=== PATIENT | female | born 1980 | race African-American/Black ===

== ENCOUNTER 2019-11-01 15:45 | Inpatient (IN) | payer BC, OTHER ==
[2019-11-01] MEDS ORDERED: BETAMET ACET/BETAMET NA PH 30 MG/5 ML VIAL ONE (17:36)
[2019-11-01] MEDS: BETAMET ACET/BETAMET NA PH 30 MG/5 ML VIAL IM SCH (18:00)
[2019-11-01 19:21] LABS: HEMATOCRIT 34.4 % (32.4-45.2); MCH 27.5 pg (25.7-33.7); MEAN PLT VOLUME 11.2 fl (7.5-11.1); PH,URINE 6.5 (5.0-8.0); PLATELET COUNT 211 K/MM3 (134-434); RDW 14.4 % (11.6-15.6); URINE APPEARANCE CLEAR; URINE BILIRUBIN NEGATIVE (NEGATIVE); URINE COLOR YELLOW; URINE GLUCOSE (UA) NEGATIVE (NEGATIVE); URINE KETONE NEGATIVE (NEGATIVE); URINE LEUK ESTERASE NEGATIVE (NEGATIVE); URINE NITRITE NEGATIVE (NEGATIVE); URINE PROTEIN NEGATIVE (NEGATIVE); URINE UROBILINOGEN 0.2 mg/dL (0.2-1.0); WHITE BLOOD COUNT 13.4 K/mm3 (4.0-10.0)
[2019-11-01 21:07] LABS: ALBUMIN 2.6 g/dl (3.4-5.0); BILIRUBIN,TOTAL 0.1 mg/dL (0.2-1); BLOOD UREA NITROGEN 6.1 mg/dL (7-18); CALCIUM 9.1 mg/dL (8.5-10.1); CREATININE 0.4 mg/dL (0.55-1.3); POTASSIUM 3.7 mmol/L (3.5-5.1); TOT PROT 5.9 g/dl (6.4-8.2)
[2019-11-01 22:10] VITALS: BMI 45.2
--- NOTE | 2019-11-01 22:24 | HP ---
Past Medical History - Admission History Source: Patient Limitations to Obtaining History: No Limitations - Past Medical History ...: 3 ...Para: 1 ...Term: 1 ...: 0 ...Spon : 0 ...Induced : 1 ...Living Children: 1 ...Multiple Gestation: 0 ... Weeks Gestation by Dates: 35.0 ...EDC by Dates: 12/06/19 - Past Surgical History Past Surgical History: Yes: (breast reduction 2010) Hx Myomectomy: No Hx Transabdominal Cerclage: No - Smoking History Smoking history: Never smoked Have you smoked in the past 12 months: No - Alcohol/Substance Use Hx Alcohol Use: No Home Medications - Allergies Allergies/Adverse Reactions: Allergies Allergy/AdvReac Type Severity Reaction Status Date / Time No Known Allergies Allergy Verified 11/01/19 18:19 - Home Medications Home Medications: Ambulatory Orders Levothyroxine [Synthroid -] 50 mcg PO DAILY 11/01/19 Vitamins (Sjr) - 1 tab PO DAILY 11/01/19 Review of Systems - Review of Systems Constitutional: reports: No Symptoms Cardiovascular: reports: No Symptoms Respiratory: reports: No Symptoms Gastrointestinal: reports: No Symptoms Genitourinary: reports: No Symptoms Physical Exam - Maternity Vital Signs: Vital Signs Temperature 98.4 F 11/01/19 21:30 Pulse Rate 89 11/01/19 21:30 Respiratory Rate 18 11/01/19 21:30 Blood Pressure 125/77 11/01/19 21:30 O2 Sat by Pulse Oximetry (%) Constitutional: Yes: Well Nourished Cardiovascular: Yes: WNL Lungs: Clear to auscultation - Abdominal Exam/OB Number of Fetuses: Single Presentation: Vertex Contractions: No Heart Rate (range): 140 Category: I Accelerations: Uniform Decelerations: None - Vaginal Exam/OB Nitrazine Test: Negative - Labs Lab Results: CBC, BMP 11/01/19 18:00 11/01/19 19:40 Hemorrhage Risk Assessment - Risk Factors Medium Risk Factors: Yes: None High Risk Factors: Yes: None Risk Score: 1 Risk Level: Medium Risk Assessment/Plan 39yo @35w0d sent for prolonged monitoring, on levothyroxine 50mcg One elevated BP,THALIA @ [facility] today 5.1 Admit to maternity BP q4 hrs NST q shift Repeat THALIA tomorrow 2dnd dose of betamethasone tomorrow 24 hr urine collection Patient aware.
--- NOTE | 2019-11-02 11:29 | PN ---
Progress Note (short form) - Note Progress Note: 39 y/o at 35w1d undergoing prolonged monitoring due to oligohydramnios. s/p betamethasone x1. Patient feels well; offers no complaints. Denies abdominal pain, vaginal bleeding, LOF. Reports good movements. VSS Abdomen gravid, soft, NT Perineum dry NST reactive No contractions U/S today shows THALIA 5.3 A/P Oligohydramnios IV hydration Second dose betamethasone at 6 PM Monitor vitals NST q shift 24 hour urine pending Reassess
[2019-11-02] MEDS: LACTATED RINGERS SOLUTION 1,000 ML/1,000 ML INFUS.BAG IV SCH ×2 (15:00→22:40)
[2019-11-02] MEDS: LEVOTHYROXINE NA 50 MCG TABLET (FP) PO SCH (15:49)
[2019-11-02] MEDS: BETAMET ACET/BETAMET NA PH 30 MG/5 ML VIAL IM SCH (18:36)
[2019-11-03] MEDS: LACTATED RINGERS SOLUTION 1,000 ML/1,000 ML INFUS.BAG IV SCH (05:36)
[2019-11-03] MEDS: LEVOTHYROXINE NA 50 MCG TABLET (FP) PO SCH (06:24)
[2019-11-03] MEDS ORDERED: LEVOTHYROXINE NA 50 MCG TABLET (FP) PO SCH (07:00)
[2019-11-04] MEDS: LACTATED RINGERS SOLUTION 1,000 ML/1,000 ML INFUS.BAG IV SCH (06:06)
[2019-11-04] MEDS: LEVOTHYROXINE NA 50 MCG TABLET (FP) PO SCH (06:07)
[2019-11-04] MEDS: PRENATAL VITAMINS W/ FOLIC ACID TABLET (FP) PO SCH (09:50)
[2019-11-04] MEDS: DOCUSATE SODIUM 100 MG CAPSULE (FP) PO PRN ×2 (09:50→20:23)
--- NOTE | 2019-11-04 12:24 | PN ---
Progress Note (short form) - Note Progress Note: Patient comfortable in bed No complaints today VSS, afebrile EFM - Baseline 140/min, moderate variability, reactive tracing Tocos - None Pelvic - deferred Plan - Late gestation with hypothyroidism and to exclude oligohydramnios Stable, continue management
[2019-11-05] MEDS: LACTATED RINGERS SOLUTION 1,000 ML/1,000 ML INFUS.BAG IV SCH ×2 (01:15→09:04)
[2019-11-05] MEDS: LEVOTHYROXINE NA 50 MCG TABLET (FP) PO SCH (06:33)
[2019-11-05] MEDS: PRENATAL VITAMINS W/ FOLIC ACID TABLET (FP) PO SCH (09:03)
[2019-11-05 09:36] VITALS: BP 131/87; PULSE 79; TEMP 97.8
--- NOTE | 2019-11-05 10:19 | PN ---
Progress Note (short form) - Note Progress Note: pt. without complaints this am. denies BOJORQUEZ , visual disturbances or epigastric pain. +FM. no leaking, bleeding or contractions. vss - af. BP ok abd: soft, nt, gravid ve: def ext: no calf tenderness b/l a/p iup at 35 2/7 weeks admitted for eval due to transient elev BP and low adair received steroid course. 24 hr urine collection completed: lab result pending for NST today and order rpt BPP, check adair.
--- NOTE | 2019-11-05 16:18 | DS ---
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 Vital Signs: Vital Signs Temperature 97.8 F 11/05/19 09:35 Pulse Rate 79 11/05/19 09:35 Respiratory Rate 18 11/05/19 09:35 Blood Pressure 131/87 11/05/19 09:35 O2 Sat by Pulse Oximetry (%) 100 11/03/19 14:00 Constitutional: Yes: Well Nourished, No Distress Eyes: Yes: WNL HENT: Yes: WNL Neck: Yes: WNL Cardiovascular: Yes: WNL Respiratory: Yes: WNL Gastrointestinal: Yes: WNL Renal/: Yes: WNL Pelvis: Yes: WNL Breast(s): Yes: WNL Musculoskeletal: Yes: WNL Extremities: Yes: WNL Edema: No Integumentary: Yes: WNL Neurological: Yes: WNL ...Motor Strength: WNL Psychiatric: Yes: WNL (Pt admitted for r/o PIH and decreased THALIA:5.1 Sono performed today THALIA 11/05 Pt has no c/o 24 hrs urine collection pending) Labs: CBC, BMP 11/01/19 18:00 11/01/19 19:40 Delivery, Single - Feeding Plan Initial Plan: Exclusive throughout hospitalization Discharge Summary Problems reviewed: Yes Reason For Visit: R/O PREECLAMPSIA Hospital Course: good Plan of Treatment: F/U with Dr Mata and Dr Moura Condition: Improved - Instructions Diet, Activity, Other Instructions: Make Appoint with Dr Mata/Dr Moura tomorrow and monday return to L&D any time you experience: -regular contractions -decreased movement -vaginal bleeding -your water breaks call with any questions or concerns [phone]. Referrals: Michelle Prieto MD [Staff Physician] - Tisha Mata MD [Staff Physician] - Disposition: HOME - Home Medications Comprehensive Discharge Medication List: Ambulatory Orders Levothyroxine [Synthroid -] 50 mcg PO DAILY 11/01/19 Vitamins (Sjr) - 1 tab PO DAILY 11/01/19
[2019-11-18 13:06] LABS: TOTAL PROTEIN, URINE 23.6 mg/dL (Not Estab.)
== END 2019-11-05 16:25 | disposition home or self-care (01) | DRG 832 ==
LOC: JDEL 15:45 → JLDR 21:36 → J3W 11-02 14:00
PROVIDERS: ADMIT Obstetrics & Gynecology; ATTEND Obstetrics & Gynecology
DX: O13.3 Gestational [pregnancy-induced] hypertension without significant proteinuria, third trimester (principal); O41.03X0 Oligohydramnios, third trimester, not applicable or unspecified; O99.283 Endocrine, nutritional and metabolic diseases complicating pregnancy, third trimester; E03.9 Hypothyroidism, unspecified; Z3A.35 35 weeks gestation of pregnancy
CPT/HCPCS: 36415; 59025; 76801-TC; 76819-TC; 80053; 81003; 84156; 84166; 84443; 85027; 96372; U0003

== ENCOUNTER 2019-11-18 17:25 | Inpatient (IN) | payer BC, OTHER ==
[2019-11-18 18:55] VITALS: BMI 44.6
[2019-11-18] MEDS ORDERED: OXYTOCIN 20 UNITS in 0.9% NS 20 UNIT/1,000 ML INFUS.BAG IV ONE (19:04)
[2019-11-18] MEDS ORDERED: CEFAZOLIN 2 GM/D5W 2 GM/50 ML ML IVPB ONE (19:05)
[2019-11-18] MEDS ORDERED: morphine SULFATE/PF 0.5 MG/ML (2cc Syringe - QUVA) ONE (19:07)
[2019-11-18] MEDS ORDERED: ePHEDrine SULFATE 50 MG/1 ML AMPULE ONE (19:07)
[2019-11-18] MEDS ORDERED: CITRIC ACID/SODIUM CITRATE 30 ML UNIT-DOSE CUP PO ONE (19:15)
--- NOTE | 2019-11-18 19:24 | HP ---
Past Medical History - Primary Care Physician PCP:: Tisha Mata - Admission Chief Complaint: Oligohydrammios and prior delivery for repeatcesarean delivery History of Present Illness: 39 yo , EPIFANIO 12/06/19, EGa 37 weeks 3 days, presented with the above. Perinatologist referred patient for delivery History Source: Patient Limitations to Obtaining History: No Limitations - Past Medical History ...: 3 ...Para: 1 ...Term: 1 ...: 0 ...Spon : 0 ...Induced : 1 ...Living Children: 1 ...Multiple Gestation: 0 ... Weeks Gestation by Dates: 37.3 ...EDC by Dates: 12/06/19 Endocrine: Yes: Hypothyroidism - Past Surgical History Past Surgical History: Yes: (breast reduction 2010) Hx Myomectomy: No Hx Transabdominal Cerclage: No - Smoking History Smoking history: Never smoked Have you smoked in the past 12 months: No - Alcohol/Substance Use Hx Alcohol Use: No History of Substance Use: reports: None - Social History Usual Living Arrangement: Yes: With Spouse Do you think of yourself as: Straight/Heterosexual History of Recent Travel: No Home Medications - Allergies Allergies/Adverse Reactions: Allergies Allergy/AdvReac Type Severity Reaction Status Date / Time No Known Allergies Allergy Verified 11/01/19 18:19 - Home Medications Home Medications: Ambulatory Orders Levothyroxine [Synthroid -] 50 mcg PO DAILY 11/01/19 Vitamins (Sjr) - 1 tab PO DAILY 11/01/19 Family Medical History Family History: Denies Review of Systems - Review of Systems Constitutional: reports: No Symptoms Eyes: reports: No Symptoms HENT: reports: No Symptoms Neck: reports: No Symptoms Cardiovascular: reports: No Symptoms Respiratory: reports: No Symptoms, Snoring Gastrointestinal: reports: No Symptoms Genitourinary: reports: No Symptoms Breasts: reports: No Symptoms Reported Musculoskeletal: reports: No Symptoms Integumentary: reports: No Symptoms Neurological: reports: No Symptoms Endocrine: reports: No Symptoms Hematology/Lymphatic: reports: No Symptoms Psychiatric: reports: No Symptoms Physical Exam - Maternity Vital Signs: Vital Signs Temperature 98.0 F 11/18/19 17:25 Pulse Rate 85 11/18/19 17:25 Respiratory Rate 20 11/18/19 17:25 Blood Pressure 126/80 11/18/19 17:25 O2 Sat by Pulse Oximetry (%) Constitutional: Yes: Well Nourished Eyes: Yes: WNL HENT: Yes: WNL Neck: Yes: WNL Cardiovascular: Yes: WNL - Abdominal Exam/OB Fundal Height: 37 Number of Fetuses: Single Presentation: Vertex Contractions: No Monitor Mode: External Heart Rate (range): 140 Heart Rate Location: [facility] Category: I Accelerations: Uniform Decelerations: None - Vaginal Exam/OB Vaginal Bleeding: No Speculum Exam: No Dilatation (cm): 0 Effacement (%): 0 Amniotic Membrane Status: Intact Presentation: Vertex/Position Station: -3 - Physical Exam Musculoskeletal: Yes: WNL Extremities: Yes: WNL Edema: No Integumentary: Yes: WNL ...Motor Strength: WNL Psychiatric: Yes: WNL Hemorrhage Risk Assessment - Risk Factors Medium Risk Factors: Yes: None High Risk Factors: Yes: None Risk Score: 1 Risk Level: Medium Risk Problem List - Problems (1) 37 weeks gestation of Code(s): Z3A.37 - 37 WEEKS GESTATION OF (2) Oligohydramnios in third trimester Code(s): O41.03X0 - OLIGOHYDRAMNIOS, THIRD TRIMESTER, NOT APPLICABLE OR UNSP (3) Elderly multigravida Code(s): O09.529 - SUPERVISION OF ELDERLY MULTIGRAVIDA, UNSPECIFIED TRIMESTER (4) Endocrine, nutritional and metabolic diseases complicating , third trimester Code(s): O99.283 - ENDO, NUTRITIONAL AND METAB DISEASES COMP PREG, THIRD TRI Assessment/Plan Early term gestation with oligohydramnios and prior delivery for repeat delivery and bilateral tubal ligation Prepare for delivery and permanent sterilization.
[2019-11-18 19:42] LABS: BASO % 0.2 % (0-2.0); EOS % 0.3 % (0-4.5); HEMATOCRIT 36.4 % (32.4-45.2); HEMOGLOBIN 11.8 GM/dL (10.7-15.3); LYMPH % 13.3 % (8-40); MCH 28.2 pg (25.7-33.7); MCHC 32.5 g/dl (32.0-36.0); MEAN CELL VOLUME 86.7 fl (80-96); MEAN PLT VOLUME 10.6 fl (7.5-11.1); MONO % 4.1 % (3.8-10.2); NEUT % 82.1 % (42.8-82.8); PLATELET COUNT 214 K/MM3 (134-434); RDW 14.8 % (11.6-15.6); WHITE BLOOD COUNT 15.3 K/mm3 (4.0-10.0)
[2019-11-18 19:45] LABS: INR 1.04 (0.83-1.09); PROTHROMBIN TIME (PATIENT) 12.3 SEC (9.7-13.0)
[2019-11-18 20:01] LABS: BLOOD UREA NITROGEN 6.6 mg/dL (7-18); CREATININE 0.4 mg/dL (0.55-1.3); POTASSIUM 4.2 mmol/L (3.5-5.1)
[2019-11-18] MEDS ORDERED: PHENYLEPHRINE HCL 10 MG/1 ML SINGLE DOSE VIAL ONE (20:08)
[2019-11-18] MEDS ORDERED: MIDAZOLAM HCL 2 MG/2 ML SINGLE DOSE VIAL ONE (20:34)
[2019-11-18] MEDS ORDERED: ONDANSETRON 4 MG/2 ML VIAL IVPUSH PRN (21:42)
[2019-11-18] MEDS ORDERED: SENNOSIDES/DOCUSATE COMBO (SENNA PLUS) TABLET (UD) PO PRN (21:47)
[2019-11-18] MEDS ORDERED: oxyCODONE HCL 5 MG TABLET PO PRN (21:47)
[2019-11-18] MEDS ORDERED: OXYTOCIN 20 UNITS in 0.9% NS 20 UNIT/1,000 ML INFUS.BAG IV SCH (22:00)
--- NOTE | 2019-11-18 22:08 | OP ---
Operative Note - Note: Operative Date: 11/18/19 Pre-Operative Diagnosis: Early term gestation with oligohydramnios, prior delivery, desires permanent sterilization for repeat delivery. Operation: Repeat delivery and bilateral tubal ligation. Surgeon: Aubrey Chaudhary Online Marketing Director: Shiraz Holley (No physician available) Anesthesiologist/BUSINESS OBJECTS ARCHITECT: Rohini Mac Anesthesia: Spinal Estimated Blood Loss (mls): 700 Operative Report Dictated: Yes
[2019-11-18 22:29] LABS: CORD BASE EXCESS -6.4 mmol/L (0-2); CORD HCO3 21.3 mmHg (20-29); CORD PCO2 49.8 mmHg (30-78); CORD pH 7.25 (7.14-7.44)
[2019-11-18 22:31] LABS: CORD HCO3 20.5 mmHg (20-29); CORD PCO2 43.9 mmHg (30-78); CORD pH 7.288 (7.14-7.44)
--- NOTE | 2019-11-18 23:04 | PN ---
Delivery - Delivery Section: Repeat Type of Anesthesia: Spinal EBL (cc): 700 Delivery, Single - Stages of Labor Date of Delivery: 11/18/19 Time of Delivery: 20:04 Time Placenta Delivered: 20:06 Placenta: Yes: Expressed, Normal Configuration - Condition of Infant Business Proposal Rep/President + Publisher Present: Yes Name: Namita Viramontes Gender: Female Weight: 2.722 kg Position: Right, OA Total Hours ROM (Hrs/Mins): 2min - 1 Minute Total Score: 9 5 Minutes Total Score: 9 - [place] Feeding Plan Initial Plan: Elected not to breastfeed exclusively throughout hospitalization
[2019-11-19] MEDS: CEFAZOLIN 1 GM/D5W 1 GM/50 ML BAG IVPB SCH ×2 (02:28→09:38)
[2019-11-19 08:39] LABS: BASO % 0.3 % (0-2.0); EOS % 0.8 % (0-4.5); HEMATOCRIT 31.9 % (32.4-45.2); HEMOGLOBIN 10.2 GM/dL (10.7-15.3); LYMPH % 17.6 % (8-40); MCH 27.2 pg (25.7-33.7); MCHC 31.8 g/dl (32.0-36.0); MEAN CELL VOLUME 85.3 fl (80-96); MEAN PLT VOLUME 10.1 fl (7.5-11.1); MONO % 4.5 % (3.8-10.2); NEUT % 76.8 % (42.8-82.8); PLATELET COUNT 202 K/MM3 (134-434); RBC 3.74 M/mm3 (3.60-5.2); RDW 14.7 % (11.6-15.6); WHITE BLOOD COUNT 12.9 K/mm3 (4.0-10.0)
--- NOTE | 2019-11-19 09:05 | PN ---
Progress Note (short form) - Note Progress Note: Anesthesia post op/pain Pt seen and examined S:Alert and awake comfortable O: Vital Signs Temperature 98.8 F 11/19/19 06:00 Pulse Rate 82 11/19/19 06:00 Respiratory Rate 19 11/19/19 07:00 Blood Pressure 123/70 11/19/19 06:00 O2 Sat by Pulse Oximetry (%) 100 11/18/19 22:00 CBC, BMP 11/19/19 07:55 11/18/19 18:50 A/P: Current Active Problems 37 weeks gestation of (Acute) Elderly multigravida (Acute) Endocrine, nutritional and metabolic diseases complicating , third trimester (Acute) Oligohydramnios in third trimester (Acute) s/p c section Doing well post op Continue current care Cedrick De La Cruz
[2019-11-19] MEDS: DOCUSATE SODIUM 100 MG CAPSULE (FP) PO SCH (09:39)
[2019-11-19] MEDS: PRENATAL VITAMINS W/ FOLIC ACID TABLET (FP) PO SCH (09:39)
--- NOTE | 2019-11-19 09:39 | OP ---
DATE OF OPERATION: 11/18/2019 PREOPERATIVE DIAGNOSES: 1. Early term gestation with oligohydramnios and prior section, for repeat delivery. 2. Desires permanent sterilization. POSTOPERATIVE DIAGNOSES: 1. Early term gestation with oligohydramnios and prior section, for repeat delivery. 2. Desires permanent sterilization. OPERATION: 1. Repeat delivery via Pfannenstiel. 2. Bilateral tubal ligation. SURGEON: Aubrey Horowitz MD AUTOMOTIVE PARTS SPECIALIST: JUAN Gustafson. There was no physician available. ANESTHESIA: Rohini Mac DO and was spinal. ESTIMATED BLOOD LOSS: 700 URINE OUTPUT: After surgery 300 mL of clear urine. POSTOPERATIVE CONDITION: Satisfactory. FINDINGS: Female infant in cephalic presentation. scores were 9 at one minute and 9 at five minutes. Weight 2743 g. There were normal tubes and ovaries and plant quality manager was present at delivery. OPERATIVE PROCEDURE: Patient admitted in the operating room. Anesthesia placed without difficulty. Patient prepped and draped in normal sterile fashion and then placed in the dorsal supine position. A Pfannenstiel incision made and carried down to layer of fascia. Fascia nicked in the midline and fascia extended laterally in both directions. Gabe clamps placed on the lower aspect of the fascia and fascia from the underlying muscle. A similar procedure carried out in the upper fascia which was also from the underlying muscle. The muscle was then divided in the midline with identification of the peritoneum. Peritoneum entered sharply with Metzenbaum scissors with identification of the vesicouterine peritoneum. An incision made through the vesicouterine peritoneum and the uterus and baby delivered by the head atraumatically and handed over to the training facilitator. Prior to this, the cord was clamped and cut and cord blood and gases obtained. Placenta was then expressed and then removed manually with normal configuration and uterus was then cleared of all clots and debris and exteriorized. Uterus was then sutured in 2 layers with 1-0 Vicryl and hemostasis achieved. The left tube was identified, held with Karissa clamp and suture ligated and hemostasis achieved. A similar procedure was also carried out on the right tube which was also identified, held with [place] clamp and suture ligated and hemostasis achieved. Uterus was then was placed back in the abdomen and the paracolic gutters cleared of all blood and debris and the abdomen closed in layers with 2-0 Vicryl on the muscle and the peritoneum, 0 Vicryl to the fascia, 3-0 plain catgut to the subcutaneous layer and fran to the skin. Patient tolerated the procedure well. Sponge, lap and instruments used count correct x2. Patient was then admitted to the recovery room in stable condition. AUBREY HOROWITZ MD [id number]
--- NOTE | 2019-11-19 10:56 | PN ---
Post Progress Note - Subjective Subjective: Patient feels well; offers no complaints. Post Day: 1 Type of Delivery: Repeat C/S Vital Signs: Vital Signs Temperature 98.5 F 11/19/19 10:00 Pulse Rate 91 H 11/19/19 10:00 Respiratory Rate 19 11/19/19 10:00 Blood Pressure 123/67 11/19/19 10:00 O2 Sat by Pulse Oximetry (%) 100 11/18/19 22:00 Breast Exam: Yes: Soft Uterus: Yes: Fundus Firm Incision: Yes: Dressing dry and intact Abdomen/GI: Yes: Abdomen soft, Tolerating PO Lochia: Yes: Rubra Lochia, amount: Small Extremities: Yes: Calves non-tender - Labs Labs: CBC WBC 12.9 K/mm3 (4.0-10.0) H 11/19/19 07:55 RBC 3.74 M/mm3 (3.60-5.2) 11/19/19 07:55 Hgb 10.2 GM/dL (10.7-15.3) L 11/19/19 07:55 Hct 31.9 % (32.4-45.2) L 11/19/19 07:55 MCV 85.3 fl (80-96) 11/19/19 07:55 MCH 27.2 pg (25.7-33.7) 11/19/19 07:55 MCHC 31.8 g/dl (32.0-36.0) L 11/19/19 07:55 RDW 14.7 % (11.6-15.6) 11/19/19 07:55 Plt Count 202 K/MM3 (134-434) 11/19/19 07:55 MPV 10.1 fl (7.5-11.1) 11/19/19 07:55 Absolute Neuts (auto) 9.9 K/mm3 (1.5-8.0) H 11/19/19 07:55 Neutrophils % 76.8 % (42.8-82.8) 11/19/19 07:55 Lymphocytes % 17.6 % (8-40) D 11/19/19 07:55 Monocytes % 4.5 % (3.8-10.2) 11/19/19 07:55 Eosinophils % 0.8 % (0-4.5) D 11/19/19 07:55 Basophils % 0.3 % (0-2.0) 11/19/19 07:55 Nucleated RBC % 0 % (0-0) 11/19/19 07:55 Assessment/Plan POD #1, hemodynamically stable D/C carmona Ambulation encouraged Regular diet Pain management Monitor vitals Consider discharge home in 1-2 days
[2019-11-19] MEDS: LEVOTHYROXINE NA 50 MCG TABLET (FP) PO SCH (11:59)
[2019-11-19] MEDS: SIMETHICONE 80 MG TAB.CHEW (FP) PO PRN ×2 (15:07→22:36)
[2019-11-19] MEDS: ACETAMINOPHEN 325 MG TABLET (FP) PO PRN ×2 (18:42→22:35)
[2019-11-19] MEDS: IBUPROFEN 600 MG TABLET (FP) PO PRN ×2 (18:42→22:35)
[2019-11-19] MEDS ORDERED: diphenhydrAMINE HCL 25 MG CAPSULE (FP) PO PRN (21:50)
[2019-11-20] MEDS: SIMETHICONE 80 MG TAB.CHEW (FP) PO PRN ×3 (06:29→20:07)
[2019-11-20] MEDS: IBUPROFEN 600 MG TABLET (FP) PO PRN ×3 (06:29→20:06)
[2019-11-20] MEDS: ACETAMINOPHEN 325 MG TABLET (FP) PO PRN ×3 (06:29→20:07)
[2019-11-20] MEDS: LEVOTHYROXINE NA 50 MCG TABLET (FP) PO SCH (06:30)
[2019-11-20] MEDS: DOCUSATE SODIUM 100 MG CAPSULE (FP) PO SCH (09:53)
[2019-11-20] MEDS: PRENATAL VITAMINS W/ FOLIC ACID TABLET (FP) PO SCH (09:54)
[2019-11-20] MEDS ORDERED: DIPHTH,PERTUSS(ACELL),TET 0.5 ML DISP.SYRIN IM ONE (10:00)
--- NOTE | 2019-11-20 10:51 | PN ---
Post Progress Note - Subjective Subjective: Doing well voiding tolerating diet flatus + Post Day: 2 Type of Delivery: Repeat C/S Vital Signs: Vital Signs Temperature 98.5 F 11/19/19 22:00 Pulse Rate 86 11/19/19 22:00 Respiratory Rate 20 11/19/19 22:00 Blood Pressure 115/65 11/19/19 22:00 O2 Sat by Pulse Oximetry (%) 100 11/18/19 22:00 Breast Exam: Yes: Soft Uterus: Yes: Fundus Firm Incision: Yes: [place] intact Abdomen/GI: Yes: Abdomen soft Extremities: Yes: Calves non-tender Activity: Ambulating - Labs Labs: CBC WBC 12.9 K/mm3 (4.0-10.0) H 11/19/19 07:55 RBC 3.74 M/mm3 (3.60-5.2) 11/19/19 07:55 Hgb 10.2 GM/dL (10.7-15.3) L 11/19/19 07:55 Hct 31.9 % (32.4-45.2) L 11/19/19 07:55 MCV 85.3 fl (80-96) 11/19/19 07:55 MCH 27.2 pg (25.7-33.7) 11/19/19 07:55 MCHC 31.8 g/dl (32.0-36.0) L 11/19/19 07:55 RDW 14.7 % (11.6-15.6) 11/19/19 07:55 Plt Count 202 K/MM3 (134-434) 11/19/19 07:55 MPV 10.1 fl (7.5-11.1) 11/19/19 07:55 Absolute Neuts (auto) 9.9 K/mm3 (1.5-8.0) H 11/19/19 07:55 Neutrophils % 76.8 % (42.8-82.8) 11/19/19 07:55 Lymphocytes % 17.6 % (8-40) D 11/19/19 07:55 Monocytes % 4.5 % (3.8-10.2) 11/19/19 07:55 Eosinophils % 0.8 % (0-4.5) D 11/19/19 07:55 Basophils % 0.3 % (0-2.0) 11/19/19 07:55 Nucleated RBC % 0 % (0-0) 11/19/19 07:55 Problem List - Problems (1) delivery delivered Code(s): O82 - ENCOUNTER FOR DELIVERY WITHOUT INDICATION (2) 37 weeks gestation of Code(s): Z3A.37 - 37 WEEKS GESTATION OF Assessment/Plan Pain management diet discharge tomorrow in am
[2019-11-20] MEDS ORDERED: BISACODYL 10 MG SUPP.RECT PR PRN (11:02)
[2019-11-20] MEDS ORDERED: MAGNESIUM HYDROX 2400MG/30ML ORAL SUSPENSION 30 ML CUP PO PRN (11:03)
[2019-11-21] MEDS: IBUPROFEN 600 MG TABLET (FP) PO PRN ×2 (00:46→06:28)
[2019-11-21] MEDS: SIMETHICONE 80 MG TAB.CHEW (FP) PO PRN ×2 (00:47→06:28)
[2019-11-21] MEDS: ACETAMINOPHEN 325 MG TABLET (FP) PO PRN ×3 (00:47→11:07)
[2019-11-21] MEDS: LEVOTHYROXINE NA 50 MCG TABLET (FP) PO SCH (06:27)
[2019-11-21 07:33] LABS: BASO % 0.5 % (0-2.0); HEMOGLOBIN 9.9 GM/dL (10.7-15.3); MEAN PLT VOLUME 9.9 fl (7.5-11.1); RDW 14.6 % (11.6-15.6)
[2019-11-21 07:47] LABS: EOS % 1.5 % (0-4.5); HEMATOCRIT 31.1 % (32.4-45.2); LYMPH % 25.4 % (8-40); MCH 27.5 pg (25.7-33.7); MEAN CELL VOLUME 85.8 fl (80-96); MONO % 5.1 % (3.8-10.2); NEUT % 67.5 % (42.8-82.8); PLATELET COUNT 215 K/MM3 (134-434); RBC 3.62 M/mm3 (3.60-5.2); WHITE BLOOD COUNT 10.2 K/mm3 (4.0-10.0)
[2019-11-21] MEDS: DOCUSATE SODIUM 100 MG CAPSULE (FP) PO SCH (09:23)
[2019-11-21] MEDS: PRENATAL VITAMINS W/ FOLIC ACID TABLET (FP) PO SCH (09:23)
[2019-11-21 10:07] VITALS: BP 130/72; PULSE 91; TEMP 97.2
--- NOTE | 2019-11-21 10:49 | DS ---
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 Vital Signs: Vital Signs Temperature 97.2 F L 11/21/19 10:00 Pulse Rate 91 H 11/21/19 10:00 Respiratory Rate 11/21/19 10:00 Blood Pressure 130/72 11/21/19 10:00 O2 Sat by Pulse Oximetry (%) 98 11/21/19 10:00 Constitutional: Yes: Well Nourished, No Distress, Calm Eyes: Yes: WNL, Conjunctiva Clear, EOM Intact HENT: Yes: WNL, Atraumatic, Normocephalic Neck: Yes: WNL, Supple, Trachea Midline Cardiovascular: Yes: WNL, Regular Rate and Rhythm Respiratory: Yes: WNL, Regular, CTA Bilaterally Gastrointestinal: Yes: WNL ...Rectal Exam: Yes: WNL Renal/: Yes: WNL Breast(s): Yes: WNL Musculoskeletal: Yes: WNL Extremities: Yes: WNL Integumentary: Yes: WNL Neurological: Yes: WNL, Alert, Oriented ...Motor Strength: WNL Psychiatric: Yes: WNL, Alert, Oriented Labs: CBC, BMP 11/21/19 07:07 11/18/19 18:50 Delivery - Delivery Vaginal Delivery: No Problems Section: Primary, Repeat Type of Anesthesia: Spinal EBL (cc): 700 Delivery, Single - Stages of Labor Date of Delivery: 11/18/19 Time of Delivery: 20:04 Time Placenta Delivered: 20:06 Placenta: Yes: Expressed, Normal Configuration - Condition of Phlebotomist Associate/Bureau Director Present: Yes Name: Namita Viramontes Gender: Female Weight: 2.722 kg Position: Right, OA Total Hours ROM (Hrs/Mins): 2min - 1 Minute Total Score: 9 5 Minutes Total Score: 9 - [place] Feeding Plan Initial Plan: Elected not to breastfeed exclusively throughout hospitalization Discharge Summary Problems reviewed: Yes Reason For Visit: C\S ADMISSSION Current Active Problems 37 weeks gestation of (Acute) delivery delivered (Acute) Elderly multigravida (Acute) Endocrine, nutritional and metabolic diseases complicating , third trimester (Acute) Oligohydramnios in third trimester (Acute) Hospital Course: non complicated Plan of Treatment: discharge Goals: f/u 2 weeks. Condition: Good - Instructions - Home Medications Comprehensive Discharge Medication List: Ambulatory Orders Levothyroxine [Synthroid -] 50 mcg PO DAILY 11/01/19 Vitamins (Sjr) - 1 tab PO DAILY 11/01/19
--- NOTE | 2019-11-27 16:51 | PATH ---
Surgical Pathology Report Patient Name: ZARA HORTON [facility]. Rec. #: [id number] /Age/Gender: 1980 (Age: 39) / F Account: [id number] Location: [facility] OBS/MILITARY TECHNOLOGY SPECIALIST Taken: 11/18/2019 Received: 11/19/2019 Reported: 11/27/2019 Physicians: Aubrey Chaudhary Specimen(s) Received A: PLACENTA B: RIGHT PARTIAL FALLOPIAN TUBE C: LEFT PARTIAL FALLOPIAN TUBE Clinical History Repeat for oligohydramnios Final Diagnosis A. PLACENTA: THIRD TRIMESTER PLACENTA WITH FOCAL INCREASED PERIVILLOUS FIBRIN DEPOSITION. TRIVASCULAR CORD. MEMBRANES WITH NO DIAGNOSTIC ABNORMALITIES. B. RIGHT PARTIAL FALLOPIAN TUBE, RESECTION: COMPLETE CROSS SECTION OF THE FALLOPIAN TUBE LUMEN IDENTIFIED. C. LEFT PARTIAL FALLOPIAN TUBE, RESECTION: COMPLETE CROSS SECTION OF THE FALLOPIAN TUBE LUMEN IDENTIFIED. Electronically Signed Randa Khan M.D. Gross Description A. The specimen is received fresh labeled placenta and is a 392 gram, 19.0 x 13.0 x 3.0 cm. placenta with attached membranes and umbilical cord. The attached membranes are fernandez, translucent with focal opacities and insert marginally. The umbilical cord measures 15 cm. in length and averages 1 cm. in diameter. The cord inserts eccentrically, 3.5 cm. to the nearest margin. No true knots or strictures are identified. Cut surface of the umbilical cord reveals 3 vessels. The surface is ascencio-blue with minimal fibrin deposition and appropriate caliber vessels. The maternal surface is red-brown with focal defects. Sectioning reveals red-brown, spongy parenchyma. No lesions are identified. House Player sections are submitted in three cassettes as follows: 1- membrane rolls and umbilical cord; 2-3- full thickness sections of placenta. B. Received in formalin labeled "right tube partial fallopian," is a 2.2 cm in length portion of fallopian tube. No fimbria are present. The outer surface is fernandez-walton and smooth. Sectioning reveals an unremarkable lumen. House Player sections are submitted in 2 cassettes. C. Received in formalin labeled "left tube partial fallopian," is a 0.8 cm in length portion of fallopian tube. No fimbria are present. The outer surface is fernandez-walton and smooth. Sectioning reveals an unremarkable lumen. House Player sections are submitted in one cassette. [facility]
== END 2019-11-21 12:20 | disposition home or self-care (01) | DRG 784 ==
LOC: JLDR 17:25 → J3W 22:52
PROVIDERS: ADMIT Obstetrics & Gynecology; ATTEND Obstetrics & Gynecology
PROC: 10D00Z1 Extraction of Products of Conception, Low, Open Approach (ICD-10-PCS; principal; 2019-11-18)
PROC: 0UL70ZZ Occlusion of Bilateral Fallopian Tubes, Open Approach (ICD-10-PCS; 2019-11-18)
DX: O82 Encounter for cesarean delivery without indication (principal); O41.03X0 Oligohydramnios, third trimester, not applicable or unspecified; O99.283 Endocrine, nutritional and metabolic diseases complicating pregnancy, third trimester; E03.9 Hypothyroidism, unspecified; O34.219 Maternal care for unspecified type scar from previous cesarean delivery; Z3A.37 37 weeks gestation of pregnancy; Z37.0 Single live birth; Z30.2 Encounter for sterilization
CPT/HCPCS: 36415; 36600; 80048; 82803; 85025; 85610; 85730; 86780; 86850; 86900; 86901; 88302-TC; 88307-TC; 90715; 94010; U0003